=== PATIENT | male | born 1990 | race Caucasian/White ===

== ENCOUNTER 2021-07-04 17:31 | Observation (INO) ==
[2021-07-04 18:51] LABS: Basophils # (auto) 0.03 K/uL (0-0.2); Basophils % (auto) 0.4 %; Eosinophils % (auto) 3.7 %; Hematocrit (blood only) 48.5 % (42-52); Hemoglobin 16.9 g/dL (14.0-18.0); Immature Granulocytes # (auto) 0.01 K/uL (0.00-0.02); Immature Granulocytes % (auto) 0.1 %; Lymphocytes # (auto) 1.96 K/uL (1.2-3.4); Lymphocytes % (auto) 24.1 %; Mean Corpuscular Hemoglobin 32.1 pg (25-34); Mean Corpuscular Hgb Conc 34.8 g/dL (32-36); Mean Corpuscular Volume 92.2 fL (80-100); Mean Platelet Volume 10.3 fL (7.4-10.4); Monocytes # (auto) 0.95 K/uL (0.11-0.59); Monocytes % (auto) 11.7 %; Neutrophils # (auto) 4.89 K/uL (1.4-6.5); Platelet Count 216 K/uL (130-400); RDW Coefficient of Variation 12.6 % (11.5-14.5); RDW Standard Deviation 42.7 fL (36.4-46.3); Red Blood Count 5.26 M/uL (4.7-6.1); White Blood Count 8.14 K/uL (4.8-10.8)
[2021-07-04 18:53] LABS: Appearance Urine Clear (Clear); Bilirubin Urine Negative (Negative); Blood Urine Negative (Negative); Color Urine Dark Yellow; Glucose Urine UA Negative (Negative); Ketones Urine Trace (Negative); Leukocyte Esterase Urine Negative (Negative); Nitrite Urine Negative (Negative); Protein Urine Negative (Negative); Specific Gravity Urine 1.028 (1.000-1.030); Urobilinogen Urine Negative (Negative)
[2021-07-04 19:10] LABS: Albumin Level 3.5 gm/dl (3.4-5.0); BUN Creatinine Ratio 10.7 (10-20); Calcium 8.9 mg/dl (8.5-10.1); Est GFR (African American) 91.6 ml/min; Est GFR (Non-African American) 79.1 ml/min; Potassium 3.9 mmol/L (3.5-5.1)
[2021-07-04 19:13] LABS: Albumin Globulin Ratio 0.8 (0.9-2); Bilirubin,Total 0.5 mg/dl (0.2-1); Globulin 4.4 gm/dl (2.5-4.0); Total Protein 7.9 gm/dl (6.4-8.2)
[2021-07-04] MEDS ORDERED: SODIUM CHLORIDE 0.9% 1000ML 1,000 ML IV ONE (20:13)
--- NOTE | 2021-07-04 20:20 | Emergency Department Note ---
Impression & Plan Abdominal pain, Acute appendicitis ED Provider Note NAME: UZIEL GO AGE: 31 SEX: M : 1990 ARRIVES VIA: Walk-In INFORMANT: Patient ED PROVIDER(S): Cory Atkins DO CHIEF COMPLAINT:abdominal pain HPI: Patient is a 31-year-old male who presents to the ER for right lower quadrant abdominal pain. This started yesterday. Has been gradually getting worse. Is worse with twisting, turning, bending, movement and coughing. He denies any nausea or vomiting. He has not eaten or drank much. No dysuria, urgency, or frequency. No chest pain or shortness of breath. No other exacerbating or remitting factors. Currently pain is a 3 out of 10. Normally sharp and stabbing with movement. ROS: See above HPI for pertinent positives & negatives. A total of 10 systems reviewed and were otherwise negative. PAST MEDICAL HISTORY:See Below PAST SURGICAL HISTORY:See Below FAMILY HISTORY:See Below SOCIAL HISTORY:See Below HOME MEDICATIONS:See Below ALLERGIES:See Below VITALS:See Below PHYSICAL EXAMINATION: GENERAL: Sitting up in bed, alert, well appearing, well nourished, no distress, non-toxic EYE EXAM: normal conjunctiva. OROPHARYNX: no exudate, no erythema, lips, buccal mucosa, and tongue normal and mucous membranes are moist NECK: supple, no nuchal rigidity, no adenopathy, non-tender LUNGS: Clear to auscultation. Normal chest wall mechanics HEART: no murmurs, S1 normal and S2 normal ABDOMEN: abdomen soft, tender palpation in right lower quadrant,normo-active bowel sounds, no masses, no rebound or guarding. BACK: Back is symmetrical on inspection and there is no deformity, no midline tenderness, no CVA tenderness. SKIN: no rashes and no bruising UPPER EXTREMITIES: upper extremities are grossly normal. LOWER EXTREMITIES: No pitting edema. NEURO EXAM: Normal sensorium, cranial nerves II-XII grossly intact, normal speech, no gross weakness of arms, no gross weakness of legs. MEDICAL DECISION MAKING: Patient is a 31-year-old male who presents ER for right lower quadrant abdominal pain. IV was established blood was obtained. Labs show no significant leukocytosis or anemia. BMP with LFTs bilirubin and lipase was unremarkable. UA was clean. Covid was negative. CT abdomen pelvis confirms acute appendicitis. This was discussed with Dr. Alena Harrison. Patient was given cefoxitin. Declined pain medications. Will be evaluated by general surgery. Please see their note for further details. Triage Nursing notes reviewed. Limited review of prior medical records performed Vital Signs: reviewed and remarkable for tachy Differential diagnosis: Differential diagnoses includes but is not limited to gastritis, peptic ulcer disease, GERD, gallbladder disease, pancreatitis, small bowel obstruction, acute coronary syndrome, pericarditis, ischemic bowel, irritable bowel disease, irritable bowel syndrome, appendicitis, diverticulitis, malignancy, hernia, urinary tract infection, torsion, perforation, trauma, infectious. ER treatment provided: See below Diagnostics interpreted by me: ECG: none Cardiac Monitoring: An order was placed for continuous cardiac monitoring. The monitor shows a rate of 80 with sinus rhythm. Laboratory studies: As stated above and show below. Imaging studies: CT abdomen pelvis shows acute appendicitis Consultation(s): Discussed with Alena Harrison for admission Procedures: none Critical Care: None Past Med/Surg History Medical History Gall bladder polyp GERD (gastroesophageal reflux disease) Hemorrhoid Obesity Surgical History H/O hemorrhoidectomy Family History Other No significant family history Social History Smoking Status: Former smoker Preferred Language: Citizen Of [place] marital status: Single Current Living Situation: Alone current occupational status: unemployed and student Feels Safe at Home: Yes Allergies Allergies Allergy/AdvReac Type Severity Reaction Status Date / Time No Known Allergies Allergy Mild Verified 07/04/21 21:31 Home Meds Home Medications Medication Instructions Recorded Confirmed omeprazole 20 mg capsule,delayed 20 mg PO DAILY 02/26/19 07/04/21 release diphenhydramine HCl 25 mg capsule 25 - 50 mg PO HS 07/04/21 07/04/21 (Benadryl) cvnpapjv-dyszyfvc-ghamp acid 400 1 tab PO DAILY 07/04/21 07/04/21 mcg-vit K 20 mcg-lycop 300 mcg tablet (Men's Multivitamin) Results & Data (ED) Vital Signs Vital Signs - 24 hr 07/04/21 17:49 07/04/21 21:31 07/04/21 23:21 Temperature 36.7 C Temperature Source Skin Pulse Rate 108 H Pulse Rate [Left Finger] 90 82 Pulse Rhythm [Left Finger] Regular Pulse Strength [Left Finger] Normal Respiratory Rate 20 20 20 Respiratory Effort / Characteristics Non-Labored Spontaneous Respiratory Depth Normal Normal Respiratory Pattern Regular Blood Pressure 119/72 Blood Pressure [Left Arm] 141/94 H 110/82 Blood Pressure Mean 87 Blood Pressure Mean [Left Arm] 109 91 Blood Pressure Position [Left Arm] Lying Sitting Pulse Oximetry 95 98 97 Oxygen Delivery Method Room Air Room Air Sepsis Recent Fever Within 48 Hours No Sepsis New/Unexplained Change in Mental Status N/A Sepsis Action Taken by Nursing No Action Required Laboratory Data Result diagrams: 07/04/21 18:40 07/04/21 18:40 Lab Results 07/04/21 07/04/21 07/04/21 Range/Units 18:35 18:40 18:40 WBC 8.14 (4.8-10.8) K/uL RBC 5.26 (4.7-6.1) M/uL Hgb 16.9 (14.0-18.0) g/dL Hct 48.5 (42-52) % MCV 92.2 (80-100) fL MCH 32.1 (25-34) pg MCHC 34.8 (32-36) g/dL RDW Std Deviation 42.7 (36.4-46.3) fL RDW Coeff of [place] 12.6 (11.5-14.5) % Plt Count 216 (130-400) K/uL MPV 10.3 (7.4-10.4) fL Immature Gran % (Auto) 0.1 % Neut % (Auto) 60.0 % Lymph % (Auto) 24.1 % Emanuel % (Auto) 11.7 % Eos % (Auto) 3.7 % Baso % (Auto) 0.4 % Neut # (Auto) 4.89 (1.4-6.5) K/uL Lymph # (Auto) 1.96 (1.2-3.4) K/uL Emanuel # (Auto) 0.95 H (0.11-0.59) K/uL Eos # (Auto) 0.30 (0-0.5) K/uL Baso # (Auto) 0.03 (0-0.2) K/uL Immature Gran # (Auto) 0.01 (0.00-0.02) K/uL Sodium 140 (136-145) mmol/L Potassium 3.9 (3.5-5.1) mmol/L Chloride 105 (98-107) mmol/L Carbon Dioxide 27 (21-32) mmol/L Anion Gap 7.0 (3-11) BUN 13 (7-18) mg/dl Creatinine 1.22 (0.6-1.4) mg/dl Est Cr Clr Drug Dosing 124.0 ml/min Est GFR ( Amer) 91.6 ml/min Est GFR (Non-Af Amer) 79.1 ml/min BUN/Creatinine Ratio 10.7 (10-20) Glucose 103 H (70-99) mg/dl Calcium 8.9 (8.5-10.1) mg/dl Total Bilirubin 0.5 (0.2-1) mg/dl AST 30 (15-37) U/L ALT 59 (12-78) Alkaline Phosphatase 100 (45-117) U/L Total Protein 7.9 (6.4-8.2) gm/dl Albumin 3.5 (3.4-5.0) gm/dl Globulin 4.4 H (2.5-4.0) gm/dl Albumin/Globulin Ratio 0.8 L (0.9-2) Lipase 68 L (73-393) U/L Urine Color Dark Yellow Urine Appearance Clear (Clear) Urine pH 6.0 (4.5-7.5) Ur Specific [place] 1.028 (1.000-1.030) Urine Protein Negative (Negative) Urine Glucose (UA) Negative (Negative) Urine Ketones Trace H (Negative) Urine Blood Negative (Negative) Urine Nitrite Negative (Negative) Urine Bilirubin Negative (Negative) Urine Urobilinogen Negative (Negative) Ur Leukocyte Esterase Negative (Negative) SARS-CoV-2, RNA, NAAT (NEGATIVE) 07/04/21 Range/Units 22:19 WBC (4.8-10.8) K/uL RBC (4.7-6.1) M/uL Hgb (14.0-18.0) g/dL Hct (42-52) % MCV (80-100) fL MCH (25-34) pg MCHC (32-36) g/dL RDW Std Deviation (36.4-46.3) fL RDW Coeff of [place] (11.5-14.5) % Plt Count (130-400) K/uL MPV (7.4-10.4) fL Immature Gran % (Auto) % Neut % (Auto) % Lymph % (Auto) % Emanuel % (Auto) % Eos % (Auto) % Baso % (Auto) % Neut # (Auto) (1.4-6.5) K/uL Lymph # (Auto) (1.2-3.4) K/uL Emanuel # (Auto) (0.11-0.59) K/uL Eos # (Auto) (0-0.5) K/uL Baso # (Auto) (0-0.2) K/uL Immature Gran # (Auto) (0.00-0.02) K/uL Sodium (136-145) mmol/L Potassium (3.5-5.1) mmol/L Chloride (98-107) mmol/L Carbon Dioxide (21-32) mmol/L Anion Gap (3-11) BUN (7-18) mg/dl Creatinine (0.6-1.4) mg/dl Est Cr Clr Drug Dosing ml/min Est GFR ( Amer) ml/min Est GFR (Non-Af Amer) ml/min BUN/Creatinine Ratio (10-20) Glucose (70-99) mg/dl Calcium (8.5-10.1) mg/dl Total Bilirubin (0.2-1) mg/dl AST (15-37) U/L ALT (12-78) Alkaline Phosphatase (45-117) U/L Total Protein (6.4-8.2) gm/dl Albumin (3.4-5.0) gm/dl Globulin (2.5-4.0) gm/dl Albumin/Globulin Ratio (0.9-2) Lipase (73-393) U/L Urine Color Urine Appearance (Clear) Urine pH (4.5-7.5) Ur Specific [place] (1.000-1.030) Urine Protein (Negative) Urine Glucose (UA) (Negative) Urine Ketones (Negative) Urine Blood (Negative) Urine Nitrite (Negative) Urine Bilirubin (Negative) Urine Urobilinogen (Negative) Ur Leukocyte Esterase (Negative) SARS-CoV-2, RNA, NAAT NEGATIVE (NEGATIVE) Administered Medications Discontinued Medications Sodium Chloride (Nss 1000ml) 1,000 mls @ 999 mls/hr IV .Q1H1M ONE Stop: 07/04/21 21:13 Last Admin: 07/04/21 21:08 Dose: 999 mls/hr Documented by: [id number] Cefoxitin Sodium (Mefoxin) 2,000 mg in 60 mls @ 100 mls/hr IV NOW STA Stop: 07/04/21 22:42 Last Admin: 07/04/21 22:38 Dose: 100 mls/hr Documented by: [id number] Ioversol (Optiray 320 100ml) 94 ml IV ONCE ONE Stop: 07/04/21 21:03 Last Admin: 07/04/21 21:03 Dose: 1 ml Documented by: [id number] Discharge Plan Visit Data Chief Complaint: Abdominal Pain Stated Complaint: ABDOMINAL PAIN FOR 2 DAYS,CONSTIPATION ED Provider: Cory Atkins Discharge Problem: Abdominal pain, Acute appendicitis Discharge Instructions Interventions: ED Discharge Assessment Last Done: 07/04/21 23:22
[2021-07-04] MEDS ORDERED: OPTIRAY 320 100ml IV ONE (21:02)
[2021-07-04] MEDS ORDERED: cefOXitin 2,000 MG/60 ML BAG IV STA (22:07)
--- NOTE | 2021-07-04 22:24 | Surgery Consultation ---
Date of Consultation July 04, 2021 Assessment & Plan (1) Acute appendicitis: 31 yr old man with acute appendicitis. Discussed laparoscopic appendectomy with risks of bleeding, infection, conversion to open, postop ileus/ abscess,negative appy. Option of antibiotics vs surgery discussed. Expected 1-2 week recovery period reviewed. Consent signed. History of Present Illness Reason for Consultation: abdominal pain Requesting Physician: Cory Atkins MD Attending Physician: Alena Harrison MD History of Present Illness 31 yr old man who presents to the ER complaining of abdominal pain of 1 days duration. Located in right lower quadrant, acute onset yesterday, no prec ipitating factors. Steadily persistent since then. Worse with movement, bending, twisting. No nausea or vomiting. No change in bowel habits. No chills, had a fever yesterday. Pain level is moderate (3-5/10). No relieving factors. In ER, CT scan done and showed appendicitis, no perforation. Allergies Allergy/AdvReac Type Severity Reaction Status Date / Time No Known Allergies Allergy Mild Verified 07/04/21 21:31 Home Medications Medication Instructions Recorded Confirmed Type omeprazole 20 mg capsule,delayed 20 mg PO DAILY 02/26/19 07/04/21 History release diphenhydramine HCl 25 mg capsule 25 - 50 mg PO HS 07/04/21 07/04/21 History (Benadryl) ptmrxjbn-ucglsqkl-ztdph acid 400 1 tab PO DAILY 07/04/21 07/04/21 History mcg-vit K 20 mcg-lycop 300 mcg tablet (Men's Multivitamin) Patient History Medical History Gall bladder polyp GERD (gastroesophageal reflux disease) Hemorrhoid Obesity Surgical History H/O hemorrhoidectomy Family History Other No significant family history Social History Smoking Status: Former smoker Preferred Language: Burmese marital status: Single Current Living Situation: Alone current occupational status: unemployed and student Feels Safe at Home: Yes Review of Systems Review of Systems: All systems reviewed & are unremarkable except as noted in HPI & below Constitutional: had a fever yesterday Physical Exam Constitutional: WD/WN, vitals as above Eyes: PERRL, conjunctivae normal, anicteric sclerae Respiratory: normal respiratory effort, lungs clear to auscultation Cardiovascular: RRR, no murmur, no edema Gastrointestinal (Abdomen): soft, tender right lower quadrant with mild guarding, nondistended, no hernias Musculoskeletal: no cyanosis or clubbing, extremities motor strength 5/5 Neurologic: no gross motor defects Psychiatric: A+Ox3, euthymic affect Results & Data ([facility]) Vital Signs (Past 12 Hours) Vital Signs Temp Pulse Pulse Resp BP BP Pulse Ox 07/04/21 21:31 90 20 141/94 H 98 07/04/21 17:49 36.7 C 108 H 20 119/72 95 Laboratory Results 07/04/21 07/04/21 07/04/21 Range/Units 18:40 18:40 18:35 WBC 8.14 (4.8-10.8) K/uL RBC 5.26 (4.7-6.1) M/uL Hgb 16.9 (14.0-18.0) g/dL Hct 48.5 (42-52) % MCV 92.2 (80-100) fL MCH 32.1 (25-34) pg MCHC 34.8 (32-36) g/dL RDW Std Deviation 42.7 (36.4-46.3) fL RDW Coeff of Aissatou 12.6 (11.5-14.5) % Plt Count 216 (130-400) K/uL MPV 10.3 (7.4-10.4) fL Immature Gran % (Auto) 0.1 % Neut % (Auto) 60.0 % Lymph % (Auto) 24.1 % [place] % (Auto) 11.7 % Eos % (Auto) 3.7 % Baso % (Auto) 0.4 % Neut # (Auto) 4.89 (1.4-6.5) K/uL Lymph # (Auto) 1.96 (1.2-3.4) K/uL [place] # (Auto) 0.95 H (0.11-0.59) K/uL Eos # (Auto) 0.30 (0-0.5) K/uL Baso # (Auto) 0.03 (0-0.2) K/uL Immature Gran # (Auto) 0.01 (0.00-0.02) K/uL Sodium 140 (136-145) mmol/L Potassium 3.9 (3.5-5.1) mmol/L Chloride 105 (98-107) mmol/L Carbon Dioxide 27 (21-32) mmol/L Anion Gap 7.0 (3-11) BUN 13 (7-18) mg/dl Creatinine 1.22 (0.6-1.4) mg/dl Est Cr Clr Drug Dosing 124.0 ml/min Est GFR ( Amer) 91.6 ml/min Est GFR (Non-Af Amer) 79.1 ml/min BUN/Creatinine Ratio 10.7 (10-20) Glucose 103 H (70-99) mg/dl Calcium 8.9 (8.5-10.1) mg/dl Total Bilirubin 0.5 (0.2-1) mg/dl AST 30 (15-37) U/L ALT 59 (12-78) Alkaline Phosphatase 100 (45-117) U/L Total Protein 7.9 (6.4-8.2) gm/dl Albumin 3.5 (3.4-5.0) gm/dl Globulin 4.4 H (2.5-4.0) gm/dl Albumin/Globulin Ratio 0.8 L (0.9-2) Lipase 68 L (73-393) U/L Urine Color Dark Yellow Urine Appearance Clear (Clear) Urine pH 6.0 (4.5-7.5) Ur Specific [place] 1.028 (1.000-1.030) Urine Protein Negative (Negative) Urine Glucose (UA) Negative (Negative) Urine Ketones Trace H (Negative) Urine Blood Negative (Negative) Urine Nitrite Negative (Negative) Urine Bilirubin Negative (Negative) Urine Urobilinogen Negative (Negative) Ur Leukocyte Esterase Negative (Negative) Diagnostic Findings CT scan abd/ pelvis (by Dr. Atkins's report to me said the stat read) showed acute appendicitis, no perforation. there is no imaging in the chart currently.
[2021-07-04] MEDS ORDERED: ATROPINE SULFATE 0.1 MG/ML 10ML SYR IV PRN (23:13)
[2021-07-04] MEDS ORDERED: ONDANSETRON INJ 2 MG/ML 2 ML VIAL IV PRN (23:13)
[2021-07-04] MEDS ORDERED: MEPERIDINE HCL 25 MG/ML CARP/VIAL IV PRN (23:13)
[2021-07-04] MEDS ORDERED: ePHEDrine sulfate 50 MG/ML AMP IV PRN (23:13)
[2021-07-04] MEDS ORDERED: HYDROmorphone INJ 1 MG/ML SYRINGE IV PRN (23:13)
[2021-07-04] MEDS ORDERED: LABETALOL HCL IV 5 MG/ML 20ML IV PRN (23:13)
[2021-07-04] MEDS ORDERED: PHENYLEPHRINE 100MCG/ML 5ML SYR IV PRN (23:13)
[2021-07-04] MEDS ORDERED: BUPIVACAINE 0.5 % 5 MG/1 ML MPF 30ML VIAL ONE (23:22)
[2021-07-04] MEDS ORDERED: fentaNYL citrate 100 MCG/2 ML VIAL ONE (23:23)
[2021-07-04] MEDS ORDERED: PROPOFOL IV EMULSION 10 MG/ML 20 ML VIAL IV ONE (23:24)
[2021-07-04] MEDS ORDERED: DEXAMETHASONE SOD INJ 4 MG/ML VIAL ONE (23:24)
[2021-07-04] MEDS ORDERED: ONDANSETRON INJ 2 MG/ML 2 ML VIAL ONE (23:24)
[2021-07-04] MEDS ORDERED: LIDOCAINE 2% 2 ML VIAL/AMP(20MG/ML) INFIL ONE (23:24)
[2021-07-04] MEDS ORDERED: SUCCINYLCHOLINE CHLORIDE 20 MG/ML 10 ML VIAL IV ONE (23:27)
[2021-07-04] MEDS ORDERED: GLYCOPYRROLATE 0.2 MG/ML VIAL ONE (23:29)
[2021-07-04] MEDS ORDERED: ROCURONIUM BROMIDE 10 MG/ML 5 ML VIAL IV ONE (23:29)
[2021-07-04] MEDS ORDERED: NEOSTIGMINE METHYLSULFATE 1 MG/ML 10ML VIAL ONE (23:29)
--- NOTE | 2021-07-04 23:37 | Anesthesiology Consultation ---
Date of Service July 04, 2021 Assessment & Plan (1) Encounter for pre-operative examination: Chart Review Chart Review: Acceptable Risk for Surgery and Patient NOT seen in Pre Admission Testing Consults Requested none History Surgery Operation Date: 07/04/21 23:55 Proposed Procedures p Laparoscopic Appendectomy - Alena Harrison MD Height/Weight Height: 5 ft 11 in Weight: 134.6 kg Allergies Allergy/AdvReac Type Severity Reaction Status Date / Time No Known Allergies Allergy Mild Verified 07/04/21 21:31 Medications Home Medications Medication Instructions Recorded Confirmed Last Taken omeprazole 20 mg capsule,delayed 20 mg PO DAILY 02/26/19 07/04/21 07/04/21 release diphenhydramine HCl 25 mg capsule 25 - 50 mg PO HS 07/04/21 07/04/21 07/03/21 (Benadryl) crfmliqb-qfsrpblj-akvmd acid 400 1 tab PO DAILY 07/04/21 07/04/21 07/04/21 mcg-vit K 20 mcg-lycop 300 mcg tablet (Men's Multivitamin) NPO Date Last Intake of Fluids: 07/04/21 Time Last Intake of Fluids: 16:00 Date Last Intake of Solids: 07/04/21 Time Last Intake of Solids: 16:00 Last Intake of Solids Comment: cereal Past Medical History Medical History Gall bladder polyp GERD (gastroesophageal reflux disease) Hemorrhoid Obesity Past Family History Family History Other No significant family history Past Surgical History Surgical History H/O hemorrhoidectomy Social History Smoking Status: Former smoker Physical Exam Vital Signs Last Vital Signs Temp 36.7 C 07/04/21 17:49 Pulse 82 07/04/21 23:21 Resp 20 07/04/21 23:21 BP 110/82 07/04/21 23:21 Pulse Ox 97 07/04/21 23:21 Testing Laboratory Results 07/04/21 18:40 07/04/21 18:40 Urine Color Dark Yellow 07/04/21 18:35 Urine Appearance Clear (Clear) 07/04/21 18:35 Urine pH 6.0 (4.5-7.5) 07/04/21 18:35 Ur Specific [place] 1.028 (1.000-1.030) 07/04/21 18:35 Urine Protein Negative (Negative) 07/04/21 18:35 Urine Glucose (UA) Negative (Negative) 07/04/21 18:35 Urine Ketones Trace (Negative) H 07/04/21 18:35 Urine Nitrite Negative (Negative) 07/04/21 18:35 Ur Leukocyte Esterase Negative (Negative) 07/04/21 18:35
[2021-07-04] MEDS ORDERED: MIDAZOLAM HCL 1 MG/ML 2ML VIAL ONE (23:43)
[2021-07-05] MEDS ORDERED: fentaNYL citrate 100 MCG/2 ML VIAL ONE (00:12)
[2021-07-05] MEDS ORDERED: ESMOLOL HCL INJ 10 MG/ML 10ML VIAL IV ONE (00:12)
[2021-07-05] MEDS ORDERED: KETOROLAC 30 MG/ML VIAL ONE (00:30)
--- NOTE | 2021-07-05 00:52 | Operative Report ---
Post Operative Report Pre & Post Diagnosis Operation Date: 07/04/21 23:55 Pre-Op Diagnosis: Acute Appendicitis Post-Op Diagnosis: Acute Appendicitis I identified the patient and participated in the time-out.: Yes Procedure Operation Date: 07/04/21 23:55 Actual Procedures p Laparoscopic Appendectomy(Not Applicable) - Alena Harrison MD Surgeon Alena Harrison MD Education Spec none Estimated Blood Loss 5 Findings Consistent with Post-Op Diagnosis very long appendix, minimal inflammation Fluids 800 cc Specimens appendix Drains none Anesthesia Type General Complications none Disposition Accompanied Patient To Recovery: No Disposition: Recovery Room Indications 31 yr old man who presented with persistent right lower quadrant pain and was found to have appendicitis. Consented for laparoscopic appendectomy. Description of Procedure He received cefoxitin preoperatively and had placement of SCD's. His abdomen was clipped after the induction of GET. He was positioned with his left arm tucked. The abdomen was prepped and draped. He was placed in trendelenberg. A supraumbilical incision was made and the veress needle placed into the peritoneal cavity. This was tested with the saline drop test. Initial pressure was 5 mm Hg and this was taken to 15 m Hg. A 12 mm trocar was placed with the camera through the trocar. Two additonal 5 mm trocars were placed under direct vision - one in the left lower quadrant, the second in the midline pubic area. The appendix was noted to be very long with minimal inflammation. There were no other abnormalities noted in the abdominal cavity. A window was created at the base of the appendix on the cecum and this was divided with the 45 mm purple load LUPIS stapler. The mesentery was long and taken with three sequential firings of the LUPIS vascular load stapler. The appendix was removed through the umbilical incision within an endocatch bag. The abdomen was irrigated and suctioned clear. No bleeding was noted. The trocars were removed. 30 cc of 0.5% marcaine was used for local anesthesia. The umbilical fascia was closed with 0 vicryl interrupted suture. The skin of all three incisions was closed with running subcuticular 4-0 vicryl suture. Steristrips and sterile dressings were applied. He was awakened and taken to recovery in stable condition. I attest to the content of the Intraoperative Record and any orders documented therein. Any exceptions are noted below.
[2021-07-05] MEDS: fentaNYL citrate 100 MCG/2 ML VIAL IV PRN ×2 (01:05→01:10)
--- NOTE | 2021-07-05 01:17 | Anesthesiology Progress Note ---
Date of Service July 05, 2021 Anesthesia Post Procedure Vital Signs Vital Signs: Temp Pulse Pulse Pulse Resp BP BP 07/05/21 01:05 101 H 16 07/05/21 00:57 36.2 C L 104 H 16 07/04/21 23:21 82 20 110/82 07/04/21 21:31 90 20 141/94 H 07/04/21 17:49 36.7 C 108 H 20 119/72 BP Pulse Ox 07/05/21 01:05 133/67 96 07/05/21 00:57 131/78 99 07/04/21 23:21 97 07/04/21 21:31 98 07/04/21 17:49 95 Pain Intensity Abdomen: Pain Intensity: 3 Transfer of Care Handoff Completed per policy Notes Mental Status: alert / awake / arousable Patient Amnestic to Procedure: Yes Nausea / Vomiting: adequately controlled Pain: adequately controlled Airway Patency, RR, SpO2: stable & adequate BP & HR: stable & adequate Hydration State: stable & adequate Anesthetic Complications: no major complications apparent and Pt Satisfied with anesthetic care
[2021-07-05] MEDS ORDERED: oxyCODONE/ACETAMINOPHEN 5mg/325mg TAB PO PRN ×2 (01:51)
[2021-07-05] MEDS ORDERED: LACTATED RINGER'S 1,000 ML IV SCH (01:51)
[2021-07-05] MEDS ORDERED: MoRPHine SULFATE 2 MG/ML CARP IV PRN (01:51)
[2021-07-05] MEDS ORDERED: ONDANSETRON INJ 2 MG/ML 2 ML VIAL IV PRN (01:51)
[2021-07-05] MEDS ORDERED: MoRPHine SULFATE 4 MG/ML 1 ML CARP\\VIAL IV PRN (01:51)
[2021-07-05] MEDS ORDERED: ACETAMINOPHEN 325 MG TAB PO PRN (01:51)
[2021-07-05] MEDS: AMPICILLIN/SULBACTAM SOD 1,500 MG in 0.9 % SODIUM CHLORIDE 100 ML IV SCH ×2 (02:46→09:24)
--- NOTE | 2021-07-05 07:05 | CT Scan Report ---
CT abd pelvis IV con only CLINICAL HISTORY: rlq abd pain COMPARISON STUDY: No previous studies for comparison. CT DOSE: 1389.67 mGy.cm TECHNIQUE: Standard CT of the Abdomen and Pelvis was performed with IV contrast. A dose lowering ivania hnique was utilized adhering to the principles of ALARA. Contrast Volume: Optiray 320, 94 ml. The patient did not receive oral contrast. FINDINGS: Lung base: The lung bases are clear. Abdominal cavity: There is no evidence for abdominal mass, adenopathy or ascites. Liver: There is homogeneous attenuation of the liver parenchyma. There is no evidence for enhancing m ass lesion. Spleen: There is homogeneous attenuation of the splenic parenchyma. There is no enhancing mass lesion . Pancreas: There is homogeneous attenuation of the pancreatic parenchyma. There is no evidence for mas s lesion or peripancreatic fluid collection. Gall Bladder: The gallbladder is well distended with no evidence for intraluminal calculi, wall thick ening or pericholecystic edema. Adrenal glands: The adrenal glands are normal in size and attenuation. There is no evidence for enhan cing mass lesion. Kidneys: There is homogeneous attenuation of the renal parenchyma bilaterally. There is no evidence f or renal calculus or hydronephrosis. There is no evidence for enhancing mass. Bowel: There is no evidence for acute appendicitis as suspected by the preliminary reading. The bowel loops are normally placed within the abdomen and pelvis without evidence for dilatation or obstructi on. There is no evidence for mass lesion. There are no inflammatory changes present. There is no evid ence for free air. Bladder: The bladder is within normal limits with no evidence for focal mass, calculus or diverticulu m. : There is no evidence for pelvic mass or adenopathy. There is no evidence for pelvic ascites. Vasculature: There is no evidence for aneurysmal dilatation of the abdominal aorta. Osseous structures: There is no acute osseous pathology. IMPRESSION: 1. No acute intra-abdominal or pelvic abnormality. There is no evidence for acute appendicitis as sotero pected on the preliminary reading. The floor will be called with results of this study. ACT 112: Negative or not required by law. Electronically signed by: Phil Crockett M.D. 07/05/2021 7:04 AM
[2021-07-05] MEDS ORDERED: PANTOprazole 40 MG TAB PO SCH (09:00)
[2021-07-05] MEDS ORDERED: MULTIVITAMIN TAB PO SCH (09:00)
--- NOTE | 2021-07-05 09:32 | Discharge Summary ---
Date of Service July 05, 2021 Admission HPI Per Admitting Provider 31 yr old man who presents to the ER complaining of abdominal pain of 1 days duration. Located in right lower quadrant, acute onset yesterday, no precipitating factors. Steadily persistent since then. Worse with movement, bending, twisting. No nausea or vomiting. No change in bowel habits. No chills, had a fever yesterday. Pain level is moderate (3-5/10). No relieving factors. In ER, CT scan done and showed appendicitis, no perforation. Principal Diagnosis Acute appendicitis Discharge Exam Constitutional WD/WN, vitals as above + obese; no acute distress and not ill appearing Respiratory normal respiratory effort; no respiratory distress Gastrointestinal (Abdomen) Inspection/Auscultation: abdomen normal to inspection and + abdominal surgical incision (covered with dry dressings); abdomen not distended Percussion/Palpation: + abdomen tender (LUQ) and abdomen soft; no guarding and abdomen not rigid Skin no rashes, warm and dry Psychiatric Orientation: alert and oriented x 3 Discharge Data Allergies Allergy/AdvReac Type Severity Reaction Status Date / Time No Known Allergies Allergy Mild Verified 07/04/21 21:31 Consultations 07/04/21 22:07 ED Decision to Admit Stat Procedures Performed Operation Date: 07/04/21 23:55 Actual Procedures p Laparoscopic Appendectomy(Not Applicable) - Alena Harrison MD Ordered Studies 07/04/21 20:13 CT abd pelvis IV con only Urgent Hospital Course (1) Acute appendicitis: Patient taken to operating room by Dr. Harrison for laparoscopic appendectomy. Patient found to have minimal appendiceal inflammation. Tolerated procedure well without difficulty. Patient was transferred to recovery room then to medical/surgical floor for postoperative care. Diet advanced to full liquids, IV Unaysn for postop antibiotics, IV morphine and PO Percocet as needed for pain, activity as tolerated. Patient was evaluated 8 hours postop. Mild nausea, pain controlled, post surgical pain, preop pain resolved. Ambulated to bathroom, not hallway. Urinating without difficulty. Encouraged to ambulate hallway. Patient was discharged home on POD # 0 around lunch time as pain controlled, ambulating hallway, and nausea resolved. Total Time Total Time Spent Total Time Spent (In Minutes): 20 minutes Total Time Includes: Examination of the Patient, Discharge Planning and Medication Reconciliation Discharge Plan Discharge Items Patient Disposition: Home - Self-Care Reason For Visit: ACUTE APPENDICITIS Discharge Diagnosis: Acute appendicitis Activity: Per Instructions section Non-emergency contact: Surgeon Call non-emergency contact if: you have any medication questions, your pain is not controlled, your pain is worsening, your pain is concerning for you, you have a fever, your temperature is above 101, your wound has increased redness, your wound has increased drainage and your wound pain has increased Follow-up/Referrals: Alena Harrison MD [Physician] - (Follow-up in surgery office in 2 weeks) Anneliese Blanco DO [Primary Care Provider] - Diet: Regular Addtl Attending Provider Instructions: Post-Surgical ~Discharge Instructions Activity Recommendations: - lifting limitation: (10 pounds for 2 weeks), - exercise/sex/sports limit: (nonstrenuous for 2 weeks), - driving or machine use limit: (none for 1 week or until pain free and no longer taking narcotic pain medication, - Shower/bathe limit: (may shower beginning tomorrow) Diet: - Resume previous diet SPECIAL CARE INSTRUCTIONS: - May shower in 24 hours. Let water run over area and pat dry. - Leave steri strips on for one week and then remove. They may fall off on their own that is okay. - Call the surgeon's office with any questions or concerns - - (ex. temperature higher than 101 degrees F, excessive bleeding or pain). MEDICATIONS: - Resume previous medications unless instructed otherwise by your surgeon. - May alternate extra strength Tylenol and Ibuprofen as needed for mild to moderate pain - 650 mg Tylenol every 6 hours as needed - Ibuprofen 600 mg every 6 hours as needed (take with food) FOLLOW UP VISIT: - If not already scheduled, please call the office to schedule a two week follow-up appointment. Office number Pending Studies at Discharge: Yes (appendix pathology, will be reviewed at follow-up visit) Stand-Alone Forms: [employer] [facility], Smoking Cessation Medications and DC Order Prescriptions: Continued omeprazole 20 mg capsule,delayed release(DR/EC) 20 mg PO DAILY RF: 0 diphenhydramine HCl [Benadryl] 25 mg Capsule 25 - 50 mg PO HS RF: 0 Men's Multivitamin 400-20-300 mcg Tablet 1 tab PO DAILY RF: 0 Discharge Orders: Discharge Order (Routine); Ordered 07/05/21 Ordered By: Alicia Aguayo Admission Data Admit Date/Time: 07/05/21 00:57 Attending Provider: Alena Harrison Admit Provider: Alena Harrison Primary Care Provider: Anneliese Blanco Other Providers: Alena Harrison
[2021-07-05] MEDS ORDERED: diphenhydrAMINE Capsule 25 MG CAP PO SCH (21:00)
== END 2021-07-05 12:42 | disposition home or self-care (01) ==
LOC: ED 17:31 → OR 23:30 → 3N 23:30